=== PATIENT | female | born 1995 | race Caucasian/White ===

== ENCOUNTER → 2020-07-27 11:39 | Outpatient (CLI) | payer MEDICAID, SELFPAY ==
--- NOTE | 2020-07-27 11:42 | XR_ITS ---
PROCEDURE: XR RIBS LT MIN 3V W CXR1V CLINICAL INDICATION: possible broken rib Pain COMPARISON: CR CXR CHEST(2 VIEWS-NOT PORTABLE) from 03/19/2015 CR CXR CHEST(2 VIEWS-NOT PORTABLE) from 02/15/2017 FINDINGS: Frontal view of the chest shows S-shaped curvature of the thoracic. Lungs are free of acute infiltrate or pneumoperitoneum. Views of the left ribs show no displaced fracture. Nipple piercing artifact is noted IMPRESSION: No acute findings. Dictated by: Gamaliel Weir MD 07/27/2020 14:41 Gamaliel Weir MD in [place] 07/27/2020 14:41
== END ==
PROVIDERS: PCP Emergency Medicine; Visit Provider Emergency Medicine
DX: S22.42XA Multiple fractures of ribs, left side, initial encounter for closed fracture (principal)
CPT/HCPCS: 71101

== ENCOUNTER 2020-12-09 10:00 | Emergency (ER) | payer MEDICAID, SELFPAY ==
[2020-12-09 10:00] VITALS: BP 142/81; PULSE 91; RESP 18; TEMP 36.7; O2SAT 98; BMI 24.0
--- NOTE | 2020-12-09 10:15 | XR_ITS ---
PROCEDURE INFORMATION: Exam: XR Right Forearm Exam date and time: 12/09/2020 10:15 AM Age: 25 years old Clinical indication: Lower or forearm; Patient HX: Pain in right forearm after lifting a chair from the table TECHNIQUE: Imaging protocol: XR Right forearm. Views: 2 views. COMPARISON: No relevant prior studies available. FINDINGS: Bones/joints: There is no evidence of acute fracture.There is no evidence of malalignment or dislocation. Soft tissues: Normal. IMPRESSION: There is no evidence of acute fracture.There is no evidence of malalignment or dislocation.
--- NOTE | 2020-12-09 10:48 | HMH.EDUTC ---
[facility] [place] Clinical Impression: Contusion of right forearm Qualifiers: Encounter type: initial encounter Qualified Code(s): S50.11XA - Contusion of right forearm, initial encounter Disposition: Home, Self-Care Condition on Discharge: Good Instructions: DI for Contusion Additional Instructions: Wrist splint will limit movement of wrist which will in turn limit stress on muscle. Can use heat, Naproxen Prescriptions: Naproxen [Naproxen 500mg tab] 500 mg PO BID 10 Days #20 tab Transmission Status: Pending to [address] #[id number] Referrals: Robb Baker MD [Primary Care Provider] - Time of Disposition: 10:58 Medical Decision Making - [place] Inquiry Pt receiving controlled substance: No Vital Signs: 12/09/20 10:00 Temperature 98.1 F Temperature Source Oral Pulse Rate [Right] 91 H Respiratory Rate 18 Blood Pressure [Right Arm] 142/81 H Blood Pressure Mean [Right Arm] 101 02 Sat by Pulse Oximetry 98 Orders (Tests/Meds): ORDERS Category Date Time Status XR forearm RT 2V Stat Exams 12/09/20 10:15 Taken - Radiology Data #1 Image(s): Forearm Image Reviewed: Yes I reviewed the patient's radiology image Preliminary Findings: Normal/NAD, No Fracture Seen [facility] [place] HPI - General Stated complaint: AO [id number] right arm pain,home accident Time Seen by Provider: 12/09/20 10:48 Mode of Arrival: Family Vehicle Source of Information: Patient Limitations: No Limitations Description of Symptoms (Recalled from Triage Doc. by RN): Patient reports right arm pain after kitchen chair hitting right forearm yesterday. HEENT Symptoms (Recalled from RN notes): No Resp Symptoms (Recalled from RN notes): No Skin Symptoms (Recalled from RN notes): No MS Symptoms (Recalled from RN notes): Yes (right forearm) Functional Status (Recalled from RN notes): na - History of Present Illness Provider Complaint: Patient was cleaning this am and flipped her kitchen chairs over. Got her forearm stuck between the chairs. Has bruising, pain and swelling. Used ice pack, but that seemed to make it worse. Onset (ago): hour(s) (3) Location: right, upper extremity Radiation: non-radiation Quality: aching Consistency: constant Relieving factors: immobilization Exacerbating factors: cold therapy, movement Associated symptoms: denies other symptoms Treatments prior to arrival: cold therapy - Related Data Previous Rx's Medication Instructions Recorded medroxyprogesterone 150 mg/mL See Rx Instructions .ROUTE 05/01/20 intramuscular suspension .COMPLEX #1 ml bojlvpvpycgioph-czsoygoexxopybp-QC 5 ml PO Q6H PRN #180 ml 06/27/20 2 mg-30 mg-10 mg/5 mL oral syrup cefdinir 300 mg capsule 300 mg PO Q12H 10 Days #20 cap 06/27/20 prednisone 20 mg tablet 20 mg PO BID #10 tab 06/27/20 bupropion HCl 150 mg 24 hr tablet, See Rx Instructions .ROUTE 07/14/20 extended release .COMPLEX #30 tablet methylprednisolone 4 mg tablets in See Rx Instructions PO PER PKG DIR 07/27/20 a dose pack #21 tab fluconazole 150 mg tablet 150 mg PO Q3D 0 Days #2 tab 08/09/20 Naproxen [Naproxen 500mg tab] 500 mg PO BID 10 Days #20 tab 12/09/20 Allergies Allergy/AdvReac Type Severity Reaction Status Date / Time Penicillins [PENICILLINS] Allergy Unknown NA-NAUSEA/V Verified 06/27/20 09:04 OMITING - Worker's Comp Is this a Worker's Comp case?: No Is this an H Worker's Comp?: No Is this a Sandhya Worker's Comp?: No [facility] History - Hepatitis A Screen Drug use history?: No High risk sexual behaviors?: No History of sexually transmitted infection?: No Currently employed?: No Childcare worker?: No Do you have indoor plumbing?: Yes Do you have electricity?: Yes Attestation statement:: This patient has been screened for Hepatitis A risk factors. I have reviewed the patient's past medical history: Yes Medical History: Reports:: Depression Other Surgeries: Yes: No Previous Surgery Amputation: No Fractures: No Commen
[2020-12-09 11:00] VITALS: BP 134/71; PULSE 76; RESP 18; TEMP 36.8; O2SAT 98
== END 2020-12-09 11:07 | disposition home or self-care (01) ==
PROVIDERS: Emergency Provider Physician Assistant; PCP Emergency Medicine
DX: S50.11XA Contusion of right forearm, initial encounter (principal); W07.XXXA Fall from chair, initial encounter; Y92.019 Unspecified place in single-family (private) house as the place of occurrence of the external cause; F33.1 Major depressive disorder, recurrent, moderate; F17.210 Nicotine dependence, cigarettes, uncomplicated; Z88.0 Allergy status to penicillin
CPT/HCPCS: 73090; 99202; G0463

== ENCOUNTER → 2022-06-12 15:20 | Outpatient (CLI) | payer MEDICAID, SELFPAY ==
[2022-06-12 15:00] LABS: Basophils # 0.1 K/mm3 (0-0.2); Basophils % 0.9 % (0.1-2.0); Eosinophils # 0.1 K/mm3 (0.0-0.4); Eosinophils % 1.7 % (0.1-12.0); Hemoglobin 14.4 g/dL (12.2-16.2); Lymphocytes # 2.3 K/mm3 (0.7-4.5); Lymphocytes % 31.5 % (10-50); Mean Corpuscular HGB Conc 32.7 g/dL (31.8-35.4); Mean Corpuscular Hemoglobin 33.9 pg (27.0-31.2); Mean Corpuscular Volume 103.8 fl (81-99); Mean Platelet Volume 9.9 fl (7.4-10.4); Monocytes # 0.4 K/mm3 (0.1-1.0); Monocytes % 5.2 % (1.7-9.3); Neutrophils # 4.4 K/mm3 (1.8-7.8); Neutrophils % 60.7 % (37.0-80.0); Platelet Count 365 K/mm3 (142-424); Red Blood Count 4.24 M/mm3 (4.20-5.40); Red Cell Distribution Width 12.4 % (11.5-17.5); White Blood Count 7.2 K/mm3 (4.8-10.8)
[2022-06-12 15:03] LABS: Alanine Aminotransferase 29 U/L (12-78); Albumin Level 4.5 g/dl (3.5-5.0); Albumin/Globulin Ratio 1.5 (1.1-1.8); Alkaline Phosphatase 82 U/L (38-126); Anion Gap 11.1 mEq/L (5-15); Aspartate Amino Transferase 27 U/L (14-36); Bilirubin,Total 0.4 mg/dl (0.2-1.3); Blood Urea Nitrogen 15 mg/dl (7-17); Calcium 9.1 mg/dl (8.4-10.2); Carbon Dioxide 26 mmol/L (22.0-30.0); Chloride 106 mmol/L (98-107); Chol/HDL Ratio 4.2 (1-3.5); Cholesterol 200 mg/dl (140-200); Estimated Glomerular Filt Rate 74 ml/min (>60); GFR (African American) 90 ML/MIN (>60); Glucose 90 mg/dl (74-100); HDL Cholesterol 48 mg/dl (40-60); Potassium 4.1 mmoL/L (3.5-5.1); Sodium 139 mmol/L (136-145); Total Protein,Serum 7.5 g/dl (6.3-8.2); Triglycerides 124 mg/dl (30-150); VLDL Cholesterol 25 mg/dL (0-40)
[2022-06-12 15:06] LABS: Barbiturates Screen,Urine Negative ng/ml (<200)
[2022-06-12 15:07] LABS: Amphetamine/Metha Screen,Urine Negative ng/ml (<1000); Benzodiazepines Screen,Urine Negative ng/ml (<200)
[2022-06-12 15:08] LABS: Cannabinoid Screen,Urine Negative ng/ml (<50)
[2022-06-12 15:09] LABS: Cocaine Screen,Urine Negative ng/ml (<300); Methadone Screen,Urine Negative ng/ml (<300)
[2022-06-12 15:10] LABS: Opiate Screen,Urine Negative ng/ml (<300)
[2022-06-12 15:11] LABS: Phencyclidine Screen,Urine Negative ng/ml (<25)
[2022-06-12 15:14] LABS: Direct LDL Cholesterol 129.95 mg/dL (100-129)
[2022-06-12 15:19] LABS: Free T4 (Free Thyroxine) 1.11 ng/dl (0.78-2.19)
[2022-06-12 15:21] LABS: 25-OH Vitamin D, Total 35.7 ng/mL (30-100)
== END ==
PROVIDERS: PCP Nurse Practitioner Family; Visit Provider Nurse Practitioner Family
DX: Z79.899 Other long term (current) drug therapy (principal); R53.83 Other fatigue; E66.9 Obesity, unspecified; Z68.32 Body mass index [BMI] 32.0-32.9, adult
CPT/HCPCS: 80053; 80061; 80305; 82306; 84439; 84443; 85025

== ENCOUNTER → 2023-05-08 08:08 | Outpatient (CLI) | payer MEDICAID, SELFPAY | LOC: LAB.DROPOF 05-09 08:09 | PROVIDERS: PCP Physician Assistant; Visit Provider Student in an Organized Health Care Education/Training Program | DX: M54.50 Low back pain, unspecified (principal); B95.2 Enterococcus as the cause of diseases classified elsewhere; B96.89 Other specified bacterial agents as the cause of diseases classified elsewhere | CPT/HCPCS: 87086 ==

== ENCOUNTER 2023-06-25 19:07 | Outpatient (CLI) | payer MEDICAID, SELFPAY ==
[2023-06-25 18:39] LABS: Coronavirus 19, PCR Not Detected (NotDetected); Influenza A, PCR Not Detected (NotDetected); Influenza B, PCR Not Detected (NotDetected)
[2023-06-25 19:03] LABS: C-Reactive Protein 6.4 mg/L (0-4)
[2023-06-25 19:11] LABS: Erythrocyte Sedimentation Rate 16 mm/hr (0-20)
[2023-06-29 12:10] LABS: Anti-Centromere B Antibodies <0.2 AI (0.0-0.9); Anti-DNA (DS) Ab Qn <1 IU/mL (0-9); Anti-Jo-1 <0.2 AI (0.0-0.9); Anti-Smith Antibody <0.2 AI (0.0-0.9); Antichromatin Antibodies <0.2 AI (0.0-0.9); Antiscleroderma-70 Antibodies <0.2 AI (0.0-0.9); RNP Antibodies 0.2 AI (0.0-0.9); Sjogren's Anti-SS-A <0.2 AI (0.0-0.9); Sjogren's Anti-SS-B <0.2 AI (0.0-0.9)
== END 2023-06-25 23:59 ==
LOC: LAB.DROPOF 19:07
PROVIDERS: PCP Student in an Organized Health Care Education/Training Program; Visit Provider Student in an Organized Health Care Education/Training Program
DX: R05.9 Cough, unspecified (principal); E66.9 Obesity, unspecified; Z68.34 Body mass index [BMI] 34.0-34.9, adult; Z72.0 Tobacco use
CPT/HCPCS: 85651; 86140; 86225; 86235; 87636

== ENCOUNTER 2023-09-23 15:39 | Emergency (ER) | payer MEDICAID, SELFPAY ==
[2023-09-23 15:40] VITALS: BP 129/82; PULSE 88; RESP 13; TEMP 36.6; O2SAT 99; BMI 35.4
--- NOTE | 2023-09-23 16:39 | ED_ITS ---
Discharge Plan Disposition Patient Disposition: Home, Self-Care Condition: Good Prescriptions Prescriptions: New methocarbamol 750 mg tablet 750 mg PO Q4H PRN (Reason: muscle spasm) Qty: 10 0RF lidocaine 5 % adhesive patch,medicated 1 patch topical DAILY Qty: 30 0RF Rx Instructions: leave on most painful area for up to 12 hrs No Action famotidine 20 mg tablet 20 mg PO DAILY Qty: 30 2RF tizanidine 4 mg tablet 4 mg PO HS PRN (Reason: muscle spasticity) Qty: 10 0RF naproxen 500 mg tablet 500 mg PO BID Qty: 20 0RF guaifenesin 600 mg tablet extended release 12hr 600 mg PO Q12H PRN (Reason: congestion) Qty: 20 0RF clindamycin HCl 300 mg capsule 300 mg PO TID Patient Comments: TABLET 1 CAPSULE BY MOUTH THREE TIMES DAILY FOR 7 DAYS fluoxetine 20 mg tablet 20 mg PO DAILY Qty: 90 2RF medroxyprogesterone [Depo-Provera] 150 mg/mL suspension 150 mg IM [id number] Qty: 1 3RF Mounjaro 5 mg/0.5 mL pen injector 5 mg SQ WEEKLY Qty: 2 0RF Referrals Follow up/Referrals: Aidee Ramires PA [Primary Care Provider] - See instructions Activity Restrictions/Add. Instructions Additional Instructions/Restrictions: Please return to the ER for any worsening signs or symptoms including fever intractable headache nausea vomiting change in level of consciousness as needed. Clinical Impressions Clinical Impression: Myalgia Discharge ED Provider: Darren Jones General Adult HPI <MEERA Casanova - Last Filed: 09/23/23 17:15> General Chief complaint: PAIN Stated complaint: Neck Stiffness Time Seen by Provider: 09/23/23 16:39 Mode of Arrival: Ambulatory Source of Information: Patient Limitations: No Limitations Description of Symptoms (Recalled from ER Triage Doc. by RN): pt presents to ed with c/o left neck and shoulder stiffness. pt reports that on thursday she had dental work done and has been taking clindamycin for infected tooth that was pulled. pt reports late last night she began to have pain in her left side of neck and shoulder. pt took a muscle relaxer this morning, then slept most of the day, pt reports pain is better after a nap but is still painful. History of Present Illness HPI narrative: Patient presents for evaluation of left-sided trapezius pain. Patient recently underwent a root canal on Thursday. This morning patient was awoken from sleep with left-sided trapezius pain. Patient initially reported a stiff neck but no headache nausea vomiting change in level of consciousness or altered sensorium. As the day is gone along patient has had improvement in her range of motion but it is ammonia still operator hence she presented at a urgent treatment center for evaluation. They sent her here for evaluation for possible meningitis. Patient reports no swelling in her mouth and is currently on clindamycin. Patient did have conscious sedation with nitrous oxide and local anesthesia. Related Data Home Medications Medication Instructions Recorded Confirmed clindamycin HCl 300 mg capsule 300 mg PO TID 09/23/23 09/23/23 Previous Rx's Medication Instructions Recorded famotidine 20 mg tablet 20 mg PO DAILY #30 tabs 03/11/23 naproxen 500 mg tablet 500 mg PO BID #20 tabs 03/18/23 tizanidine 4 mg tablet 4 mg PO HS PRN muscle spasticity 05/12/23 #10 tabs fluoxetine 20 mg tablet 20 mg PO DAILY #90 tabs 06/12/23 guaifenesin 600 mg tablet, 600 mg PO Q12H PRN congestion #20 06/25/23 extended release 12 hr tabs medroxyprogesterone 150 mg/mL 150 mg IM [id number] #1 mL 08/08/23 intramuscular suspension (Depo-Provera) tirzepatide 5 mg/0.5 mL 5 mg (0.5 mL) SQ WEEKLY Weight 08/13/23 subcutaneous pen injector loss #2 mL (Lonny) lidocaine 5 % topical patch 1 patch topical DAILY #30 ea 09/23/23 methocarbamol 750 mg tablet 750 mg PO Q4H PRN muscle spasm #10 09/23/23 tabs Allergies Allergy/AdvReac Type Severity Reaction Status Date / Time Penicillins [PENICILLINS] Allergy Unknown NA-NAUSEA/V Verified 09/23/23 15:05 OMITING [facility] <MEERA Casanova - Last Filed: 09/23/23 17:15> [facility] Disclaimer: The information contained in this section may have been updated after the patient was seen, as this information can be updated by other users. Medical History Abnormal cervical Papanicolaou smear Depression Anxiety Follicle cyst Obesity Tobacco use Overweight (BMI 25.0-29.9) Contusion of right forearm Encounter for Depo-Provera contraception control counseling Surgical History No history of previous surgery Family History Other Alcoholism Asthma Cancer Coronary artery disease Heart attack Social History Smoking Status: Current every day smoker tobacco type: cigarettes packs per day: 1 alcohol intake: never substance use type: denies use current occupational status: employed Travel in the last 8 weeks: None household members: family housing: house <MEERA Casanova - Last Filed: 09/23/23 17:15> ROS Obtained: Yes Systems reviewed as appropriate & no additional complaints except as documented Physical Exam <MEERA Casanova - Last Filed: 09/23/23 17:15> General General appearance: alert and in no apparent distress Head Head exam: atraumatic and normal inspection Eye Eye exam: Present normal appearance ENT ENT exam: Present normal exam and normal oropharynx (No evidence of erythema infection drainage edema. No petechiae or exudate) Neck Neck exam: Present normal inspection, full ROM, trachea midline and tenderness (Patient has tenderness to palpation of the upper portion of the trapezius from the occiput to the acromion. Patient has no nuchal rigidity patient has no midline cervical spine tenderness patient has full flexion slightly painful extension without meningeal signs); Absent lymphadenopathy Chest Chest inspection: Present normal inspection and symmetric chest wall rise Respiratory Respiratory exam: Present normal lung sounds bilaterally Cardiovascular Cardiovascular exam: Present regular rate Extremities Exam Extremities exam: Present normal inspection and full ROM Back Exam Back exam: Present normal inspection, full ROM and tenderness (Except for mentioned above in the neck exam) Neurological Exam Neurological exam: Present alert, oriented X3, CN II-XII intact and normal gait Psychiatric Psychiatric exam: Present normal affect and normal mood Skin Skin exam: Present warm, dry and normal color Medical Decision Making <MEERA Casanova - Last Filed: 09/23/23 17:15> Medical Records Medical records reviewed: Yes I reviewed the patient's medical records. [place] Inquiry Pt receiving controlled substance: No Vital Signs: 09/23/23 15:40 09/23/23 17:23 Temperature 97.8 F 98.0 F Temperature Source Oral Pulse Rate 82 Pulse Rate [Left Radial] 88 Respiratory Rate 13 16 Blood Pressure 133/78 Blood Pressure [Right Arm] 129/82 Blood Pressure Mean [Right Arm] 97 02 Sat by Pulse Oximetry 99 Medical Decision Narrative: In summary patient is a 28-year-old female who presents to the emergency department for evaluation of trapezius myalgia. Patient is hemodynamically stable upon arrival, afebrile. Physical exam is remarkable for tenderness to palpation along the left-sided upper trapezius muscle with no midline tenderness no meningeal signs no nuchal rigidity no evidence of infection no lymphadenopathy with a Eric Coma Score 15. Differential diagnosis includes trapezius myalgia, postoperative complication, postoperative abscess lymphadenopathy etc. I had an interactive discussion with the patient regarding her findings and management options. I discussed the risks and benefits of radiographic imaging laboratory work and potential diagnoses. Via shared decision making we agreed to treat as a muscle strain with anti-inflammatories and topical lidocaine patch with further workup deferred. Patient verbalized that she will return to emergency department for any worsening signs and symptoms including intractable headache nausea vomiting altered sensorium. <Darren Jones MD - Last Filed: 09/23/23 22:15> Vital Signs: 09/23/23 15:40 09/23/23 17:23 Temperature 97.8 F 98.0 F Temperature Source Oral Pulse Rate 82 Pulse Rate [Left Radial] 88 Respiratory Rate 13 16 Blood Pressure 133/78 Blood Pressure [Right Arm] 129/82 Blood Pressure Mean [Right Arm] 97 02 Sat by Pulse Oximetry 99 Medical Decision Narrative: In summary patient is a 28-year-old female who presents to the emergency department for evaluation of trapezius myalgia. Patient is hemodynamically stable upon arrival, afebrile. Physical exam is remarkable for tenderness to palpation along the left-sided upper trapezius muscle with no midline tenderness no meningeal signs no nuchal rigidity no evidence of infection no lymphade nopathy with a [place] Coma Score 15. Differential diagnosis includes trapezius myalgia, postoperative complication, postoperative abscess lymphadenopathy etc. I had an interactive discussion with the patient regarding her findings and management options. I discussed the risks and benefits of radiographic imaging laboratory work and potential diagnoses. Via shared decision making we agreed to treat as a muscle strain with anti-inflammatories and topical lidocaine patch with further workup deferred. Patient verbalized that she will return to emergency department for any worsening signs and symptoms including intractable headache nausea vomiting altered sensorium. I was consulted by the KRYSTLE, and we discussed the complexity of the problems being addressed. I approved the treatment and management plan for this patient?s care in the Emergency Department, thus performing a substantive portion of the medical decision making. Darren Jones MD Critical Care <MEERA Casanova - Last Filed: 09/23/23 17:15> Critical Care Time Critical Care Time: No
[2023-09-23 17:23] VITALS: BP 133/78; PULSE 82; RESP 16; TEMP 36.7; O2SAT 98
== END 2023-09-23 17:23 | disposition home or self-care (01) ==
PROVIDERS: Emergency Provider Emergency Medicine; PCP Student in an Organized Health Care Education/Training Program
DX: M54.2 Cervicalgia (principal)
CPT/HCPCS: 99283

== ENCOUNTER 2024-06-03 09:09 | Outpatient (CLI) | payer MEDICAID, SELFPAY | END 2024-06-03 23:59 | disposition home or self-care (01) | LOC: LAB.DROPOF 06-06 09:10 | PROVIDERS: PCP Student in an Organized Health Care Education/Training Program; Visit Provider Student in an Organized Health Care Education/Training Program | DX: R09.81 Nasal congestion (principal) | CPT/HCPCS: 87070; 87077; 87186 ==

== ENCOUNTER 2024-07-22 10:54 | Outpatient (CLI) | payer MEDICAID, SELFPAY ==
[2024-07-22 18:13] LABS: Basophils # 0.1 K/mm3 (0-0.2); Basophils % 0.7 % (0.1-2.0); Eosinophils # 0.2 K/mm3 (0.0-0.4); Hematocrit 42.7 % (37.0-47.0); Hemoglobin 13.9 g/dL (12.2-16.2); Lymphocytes # 2.4 K/mm3 (0.7-4.5); Lymphocytes % 27.1 % (10-50); Mean Corpuscular HGB Conc 32.6 g/dL (31.8-35.4); Mean Corpuscular Hemoglobin 34.8 pg (27.0-31.2); Mean Platelet Volume 11.1 fl (7.4-10.4); Monocytes # 0.5 K/mm3 (0.1-1.0); Monocytes % 5.5 % (1.7-9.3); Neutrophils # 5.7 K/mm3 (1.8-7.8); Neutrophils % 64.4 % (37.0-80.0); Platelet Count 317 K/mm3 (142-424); Red Blood Count 3.99 M/mm3 (4.20-5.40); Red Cell Distribution Width 12.5 % (11.5-17.5); White Blood Count 8.8 K/mm3 (4.8-10.8)
[2024-07-22 18:20] LABS: Alanine Aminotransferase 41 U/L (12-78); Albumin Level 4.3 g/dl (3.5-5.0); Albumin/Globulin Ratio 1.8 (1.1-1.8); Alkaline Phosphatase 75 U/L (38-126); Anion Gap 11.2 mEq/L (5-15); Aspartate Amino Transferase 35 U/L (14-36); Bilirubin,Total 0.2 mg/dl (0.2-1.3); Blood Urea Nitrogen 13 mg/dl (7-17); Calcium 9.4 mg/dl (8.4-10.2); Carbon Dioxide 27 mmol/L (22.0-30.0); Chloride 108 mmol/L (98-107); Chol/HDL Ratio 3.4 (1-3.5); Cholesterol 190 mg/dl (140-200); Estimated Glomerular Filt Rate 84 ml/min (>60); GFR (African American) 101 ML/MIN (>60); Globulin 2.4 g/dL (1.3-3.2); Glucose 91 mg/dl (74-100); HDL Cholesterol 56 mg/dl (40-60); Potassium 5.2 mmoL/L (3.5-5.1); Sodium 141 mmol/L (136-145); Total Protein,Serum 6.7 g/dl (6.3-8.2); Triglycerides 135 mg/dl (30-150); VLDL Cholesterol 27 mg/dL (0-40)
[2024-07-22 18:31] LABS: Direct LDL Cholesterol 112.15 mg/dL (100-129)
[2024-07-22 18:35] LABS: 25-OH Vitamin D, Total 46.7 ng/mL (30-100)
[2024-07-22 18:50] LABS: Thyroid Stimulating Hormone 2.38 uIU/mL (0.465-4.68)
== END 2024-07-22 23:59 | disposition home or self-care (01) ==
LOC: LAB.DROPOF 07-23 10:54
PROVIDERS: PCP Nurse Practitioner Family; Visit Provider Nurse Practitioner Family
DX: F41.1 Generalized anxiety disorder (principal); F32.A Depression, unspecified; E66.9 Obesity, unspecified; Z68.35 Body mass index [BMI] 35.0-35.9, adult; F17.210 Nicotine dependence, cigarettes, uncomplicated
CPT/HCPCS: 80053; 80061; 82306; 84443; 85025

== ENCOUNTER 2024-11-24 10:32 | Outpatient (CLI) | payer MEDICAID, SELFPAY ==
--- OUTSIDE RECORDS SUMMARY | 2024-11-24 10:36 | XMS_ITS | Data Portability ---
Author Organization [facility] Address [address] [place] [address] Assessment Encounter Date Assessment Date Assessment LastModified by Organization Details LastModified Time 10/22/2015 10/22/2015 Ms Goodman has had a strain of the right hip joint after trying to move a large floor mat by kicking with her right foot 3 days ago. It has not improved and she is feeling some pain in the low back more than usual. She works parttime 2 or 3 days weekly. We recommend she take liquid ibuprofen at 200 mg total three times daily with food. We also recommend she work on good posture. We recommend some stretches and light duty. Not available 10/22/2015 12:36:51 10/26/2015 10/26/2015 Ms Goodman has recovered from her acute low back and right hip strains from a work injury that occurred when she kicked a heavy mat on a resident's floor last week. She will return to work tomorrow with no restrictions. Not available 10/26/2015 22:52:33 Plan of Treatment Reminders Order Date Submit Date Provider Last Modified By Organization Details Last Modified Time Details Appointments None record ed. Lab None record ed. Referral None record ed. Procedures None record ed. Surgeries None record ed. Imaging None record ed. Medication Orders None record ed. Patient TargetsNo targets recorded. Patient Instructions Encounter Date Encounter Id Patient Instructions Last Modified By Organization Details Last Modified Time 10/22/2015 [id number] hip flexor strain: rehab exercises Not available 10/22/2015 12:37:59 snapping hip syndrome: exercises Not available 10/22/2015 12:37:59 acute low back pain: exercises Not available 10/22/2015 12:37:59 back care and preventing injuries: care instructions Not available 10/22/2015 12:37:59 back stretches: exercises Not available 10/22/2015 12:38:00 Reason for Referral None Reported. Problems Name Problem SNOMED Code Status Onset Date Resolution Date Notes Provider Name and Address Organization Details Recorded Time Strain of flexor muscle of hip 171513830 Active Nisreen Vera MD [address] [address] , [place] [facility] 10/26/2015 22:52:33 Low back pain 889141087 Active Nisreen Vera MD [address], [address] , [place] [facility] 10/26/2015 22:52:33 Problem Notes None recorded. Medical Equipment None Reported. Allergies No known drug allergies Vitals Date Recorded Heart rate Body temperature Body weight Body height Body mass index (BMI) Oxygen saturation Oxygen saturation in Arterial blood by Pulse oximetry Systolic And Diastolic Provider Name and Address Organization Details Last Updated DateTime 6 80 /min 98.4 [degF] 09480.4 66412 g 165.1 cm 20 kg/m2 98 % 98 % 96/72 mm[Hg] [facility] 11:27:39 Date Recorded Body height Body temperature Heart rate Oxygen saturation Oxygen saturation in Arterial blood by Pulse oximetry Systolic And Diastolic Provider Name and Address Organization Details Last Updated DateTime 6 165.1 cm 98.3 [degF] 76 /min 98 % 98 % 100/67 mm[Hg] [facility] 10:26:03 Social History Question Answer Notes LastModified by Organizat ion Details LastModified Time Tobacco Smoking Status Current Every Day Smoker [facility] 10/22/2015 11:30:05 How Much Tobacco Do You Smoke? 1 PPD Information not available 10/22/2015 How Many Years Have You Smoked Tobacco? 5 Information not available 10/22/2015 Sex: Unknown Functional Status None recorded. Mental Status None recorded. Family History Nothing Reported. Medical History No medical history recorded. Gynecological HistoryNo gynecological history recorded. Obstetrics History GPAL:G 0 P 0 0 0 0 Past Encounters Encounter ID Performer Location Encounter Start Date Encounter Closed Date Diagnosis/Indication Diagnosis SNOMED-CT Code Diagnosis ICD10 Code Diagnosis Note [id number] Nisreen Vera MD [facility] [address] [place] [id number] 10/22/2015 11:23:07 10/22/2015 13:32:37 Strain of flexor muscle of hip [id number] S76.011A Low back pain 657666174 M54.5 [id number] Nisreen Vera MD [facility] [address] [phone] 10/26/2015 10:05:20 10/28/2015 12:41:02 Strain of flexor muscle of hip 054461218 S76.011A Low back pain 269837895 M54.5 Health Concerns Section Related Observation LastModified by Organization Detai ls LastModified Time None Recorded Concern Status LastModified by Organization Details LastModified Time None Recorded Advance Directives Directive None Recorded Payers Insurance Date Sequence Insurance Name Policy Number Policy Dewitt Covered Member ID Dewitt Member ID Guarantor Name 10/22/2015 [employer] [id number] [facility] Richa Gaunce OBGyn Episode No OBEpisode recorded.
== END 2024-11-24 23:59 | disposition home or self-care (01) ==
LOC: LAB 10:33
PROVIDERS: PCP Nurse Practitioner Family; Visit Provider Nurse Practitioner Obstetrics & Gynecology
DX: Z32.00 Encounter for pregnancy test, result unknown (principal)
CPT/HCPCS: 36415; 84144; 84702

== ENCOUNTER 2025-02-03 15:33 | Outpatient (CLI) | payer MEDICAID, SELFPAY | END 2025-02-03 23:59 | disposition home or self-care (01) | LOC: LAB.DROPOF 15:33 | PROVIDERS: PCP Student in an Organized Health Care Education/Training Program; Visit Provider Student in an Organized Health Care Education/Training Program | DX: N39.0 Urinary tract infection, site not specified (principal) | CPT/HCPCS: 87086 ==

== ENCOUNTER 2025-02-10 14:30 | Outpatient (CLI) | payer MEDICAID, SELFPAY | END 2025-02-10 23:59 | LOC: LAB.DROPOF 02-13 10:50 | PROVIDERS: PCP Obstetrics & Gynecology; Visit Provider Obstetrics & Gynecology | DX: N89.8 Other specified noninflammatory disorders of vagina (principal); N94.89 Other specified conditions associated with female genital organs and menstrual cycle | CPT/HCPCS: 87086; 87491; 87529; 87591; 87661; 87798; 87801 ==